=== PATIENT | female | born 1980 | race Caucasian/White ===

== ENCOUNTER 2021-05-08 06:40 | Emergency (ER) | payer BC ==
[2021-05-08] MEDS: Acetaminophen 500 MG Tab PO ONE (07:18)
[2021-05-08] MEDS: Ketorolac 30 MG/ML SDV IM ONE (07:19)
--- NOTE | 2021-05-08 07:21 | EDM.PDOC ---
ED HPI GENERAL MEDICAL PROBLEM - General Chief Complaint: Lower Extremity Injury/Pain Stated Complaint: FELL DOWN COUPLE STAIRS Time Seen by Provider: 05/08/21 07:05 Source of Information: Reports: Patient, Old Records, RN History Limitations: Reports: No Limitations - History of Present Illness INITIAL COMMENTS - FREE TEXT/NARRATIVE: 40 yo female a visiting [place] miss judged the number of stairs she had to walk down last night and fell injuring her R foot dorsum. Has not taken anything for pain yet today. Is here for eval due to the pain. No other areas of injury reported. Onset: Sudden Onset Date: 05/07/21 Duration: Hour(s): Location: Reports: Lower Extremity, Right Quality: Reports: Ache (at rest), Sharp (with weight bearing) Severity: Severe (with weight bearing) Improves with: Reports: Rest Worsens with: Reports: Movement (especially weight bearing) Context: Reports: Trauma Associated Symptoms: Reports: No Other Symptoms Treatments COATINGS INSPECTOR: Reports: Other (see below) (none) Right Foot Pain Score (Numeric/FACES): 7 - Related Data Allergies Allergy/AdvReac Type Severity Reaction Status Date / Time No Known Allergies Allergy Verified 05/08/21 06:53 Home Meds: Home Meds Levothyroxine 125 mcg PO ACBREAKFAST 05/08/21 [History] Past Medical History Endocrine/Metabolic History: Reports: Hypoparathyroidism Social & Family History - Tobacco Use Tobacco Use Status *Q: Never Tobacco User Review of Systems - Review of Systems Review Of Systems: See Below Constitutional: Reports: No Symptoms Musculoskeletal: Reports: Foot Pain (R foot dorsally) Skin: Reports: No Symptoms Neurological: Reports: No Symptoms Psychiatric: Reports: No Symptoms ED EXAM, GENERAL - Physical Exam Exam: See Below Exam Limited By: No Limitations General Appearance: Alert, WD/WN, No Apparent Distress Eye Exam: Bilateral Eye: Normal Inspection Ears: Normal External Exam, Normal Canal, Hearing Grossly Normal Ear Exam: Bilateral Ear: Auricle Normal, Canal Normal Nose: Normal Inspection, No Blood Throat/Mouth: Normal Voice, No Airway Compromise Head: Atraumatic, Normocephalic Neck: Normal Inspection Respiratory/Chest: No Respiratory Distress Extremities: Normal Inspection, No Pedal Edema. No: Non-Tender (tender across the top of her R foot), Pedal Edema, Increased Warmth, Redness Neurological: Alert, Oriented, CN II-XII Intact, Normal Cognition, No Motor/Sensory Deficits Psychiatric: Normal Affect, Normal Mood Skin Exam: Warm, Dry, Intact, Normal Color, No Rash Course - Vital Signs Last Recorded V/S: Last Vital Signs Temp 36.8 C 05/08/21 07:08 Pulse 72 05/08/21 07:08 Resp 16 05/08/21 07:08 BP 119/72 05/08/21 07:08 Pulse Ox 99 05/08/21 07:08 - Orders/Labs/Meds Orders: Active Orders 24 hr Category Date Time Status Foot Comp Min 3V Rt [CR] Stat Exams 05/08/21 07:12 Taken Meds: Medications Discontinued Medications Generic Name Dose Route Start Last Admin Trade Name Mercedes PRN Reason Stop Dose Admin Acetaminophen 1,000 mg 05/08/21 07:12 05/08/21 07:18 Acetaminophen 500 Mg Tab PO 05/08/21 07:13 1,000 mg ONETIME ONE Administration Ketorolac Tromethamine 30 mg 05/08/21 07:11 05/08/21 07:19 Ketorolac 30 Mg/Ml Sdv IM 05/08/21 07:12 30 mg ONETIME ONE Administration - Radiology Interpretation Free Text/Narrative:: R foot X-ray-neg - Re-Assessments/Exams Free Text/Narrative Re-Assessment/Exam: 05/08/21 07:45 3 inch JENNIFER and crutches given. Departure - Departure Time of Disposition: 08:00 Disposition: Home, Self-Care 01 Condition: Fair Clinical Impression: Right foot sprain Qualifiers: Encounter type: initial encounter Qualified Code(s): S93.601A - Unspecified sprain of right foot, initial encounter - Discharge Information *PRESCRIPTION DRUG MONITORING PROGRAM REVIEWED*: Not Applicable *COPY OF PRESCRIPTION DRUG MONITORING REPORT IN PATIENT KAYLENE: Not Applicable Instructions: Foot Sprain Referrals: PCP,None [Primary Care Provider] - Forms: ED Department Discharge Additional Instructions: Elevate today to prevent swelling. Wear your JENNIFER wrap for support. Take Aleve(naproxen sodium) 2 every 8 hrs with food as needed for pain relief. Add acetaminophen 1000 mg every 6 hrs for added pain relief. Crutch walking until able to bear weight comfortably. Consider using a knee walker if crutches are not working well for you in your situation, these can be picked up at [facility] or other establishments that sell medical supplies. Recheck if not any better in one week or if not fully recovered in about 2.5 weeks. Sepsis Event Note (ED) - Focused Exam Vital Signs: Vital Signs Temp Pulse Resp BP Pulse Ox 05/08/21 07:08 36.8 C 72 16 119/72 99 - My Orders Last 24 Hours: My Active Orders 05/08/21 07:12 Foot Comp Min 3V Rt [CR] Stat - Assessment/Plan Last 24 Hours: My Active Orders 05/08/21 07:12 Foot Comp Min 3V Rt [CR] Stat
--- NOTE | 2021-05-08 10:52 | CR ---
Foot Comp Min 3V Rt CLINICAL HISTORY: Trauma FINDINGS: There is no acute fracture or dislocation within the foot. No destructive changes are present. There is a small calcaneal spur IMPRESSION: No acute bony process.
== END 2021-05-08 08:00 | disposition home or self-care (01) ==
LOC: JP.ED 06:40
DX: S93.601A Unspecified sprain of right foot, initial encounter (principal); E03.9 Hypothyroidism, unspecified; Z79.899 Other long term (current) drug therapy; W18.30XA Fall on same level, unspecified, initial encounter
CPT/HCPCS: 73630; 96372; 99283; A9270; J1885